=== PATIENT | male | born 1995 | race Caucasian/White ===

== ENCOUNTER 2018-04-24 06:41 | Emergency (ER) | payer OTHER ==
[2018-04-24 06:53] VITALS: BP 147/92; PULSE 80; TEMP 97.6; BMI 29.2
--- NOTE | 2018-04-24 07:10 | PDOC ---
History of Present Illness - General Chief Complaint: Back Pain Stated Complaint: BACK PAIN Time Seen by Provider: 04/24/18 07:09 History Source: Patient Exam Limitations: No Limitations - History of Present Illness Initial Comments: 04/24/18 07:35 23 year old male with no PMH presents to ED complaining of right sided back pain x6 days, worsening x1 day. He states his pain is located to his right back , radiating around to his right flank, constant, with no alleviating or aggravating factors. He denies fevers, chills, nausea, vomiting, diarrhea, abdominal pain, chest pain, shortness of breath, dysuria, hematuria, headache, weakness, numbness, tingling. Pt states the pain began when he was walking to the shower and felt his back "tighten up". PCP - pt does not remember his PCP's name Surgical history - none Allergies - NKDA Denies IV drug use, recreational drug use, ETOH use, nicotine use. Past History - Past Medical History Allergies/Adverse Reactions: Allergies Allergy/AdvReac Type Severity Reaction Status Date / Time No Known Allergies Allergy Verified 04/24/18 06:52 Home Medications: Ambulatory Orders Naproxen 500 mg PO BID 5 Days #10 tablet 04/24/18 - Suicide/Smoking/Psychosocial Hx Smoking History: Never smoked Have you smoked in the past 12 months: No Information on smoking cessation initiated: No Hx Alcohol Use: No Drug/Substance Use Hx: No Review of Systems - Review of Systems Able to Perform ROS?: Yes Comments:: 04/24/18 07:38 General: denies fever, chills, night sweats, generalized weakness. HEENT: denies sore throat, rhinorrhea, ear pain. Heart: denies chest pain, palpitations, syncope, lower extremity swelling. Respiratory: denies shortness of breath, cough, sputum production, hematemesis. Abdomen: denies abdominal pain, nausea, vomiting, diarrhea, constipation, blood in stool, bowel incontinence. : denies dysuria, urinary frequency, hematuria, urinary incontinence. Back: admits to back pain. Musculoskeletal: denies joint pain and joint swelling. Neurological: denies headache, dizziness, numbness, tingling. Skin: denies rash, laceration, abrasion. *Physical Exam - Vital Signs Last Vital Signs Temp Pulse Resp BP Pulse Ox 97.6 F 80 20 147/92 99 04/24/18 06:52 04/24/18 06:52 04/24/18 06:52 04/24/18 06:52 04/24/18 06:52 - Physical Exam Comments: 04/24/18 07:39 Appearance: sitting upright in bed. HEENT: head is normocephalic, atraumatic. EOMI. PERRLA. Neck: supple. Full ROM. Heart: regular rhythm. no murmurs, rubs or gallops. Lungs: clear to auscultation bilaterally. no crackles, rhonchi or wheezing. no stridor. Abdomen: soft, nontender. normal bowel sounds. no rebound, guarding, masses. Back: tenderness to palpation of right latissiumus dorsi, no midline tenderness of c-spine, t-spine or l-spine. straight leg test negative bilaterally. reproduction of pain with arm adducted, internally rotated and patient instructed to abduct and externally rotate against resistance. Extremities: Peripheral pulses intact and equal. No lower extremity edema. Neurological: Alert. Oriented x3. CN 2-12 intact. 5/5 strength all extremities. Full sensation all extremities and bilateral face. Medical Decision Making - Medical Decision Making 04/24/18 07:43 23 year old male with no PMH, denies IV drug use, denies diabetes, complaining of right sided back pain x6 days. No fever, chills, urinary or bowel incontinence, weakness, numbness, abdominal pain, dysuria. Pain is reproducible upon palpation of the latissimus dorsi muscle and activation of the latissimus dorsi muscle. Initial Vital Signs Temp Pulse Resp BP Pulse Ox 97.6 F 80 20 147/92 99 04/24/18 06:52 04/24/18 06:52 04/24/18 06:52 04/24/18 06:52 04/24/18 06:52 Afebrile. No tachycardia. No hypotension. Pending Toradol, UA. 04/24/18 09:35 UA negative, CXR negative. Pt will be discharged with prescription for Naproxen, instructions to follow up with his PCP and strict return precautions. *DC/Admit/Observation/Transfer Diagnosis at time of Disposition: Back pain - Discharge Dispostion Disposition: HOME Condition at time of disposition: Improved - Prescriptions Prescriptions: Naproxen 500 mg PO BID 5 Days #10 tablet - Referrals Referrals: Tristan Lau MD [Primary Care Provider] - - Patient Instructions Printed Discharge Instructions: DI for Low Back Pain, DI for Muscle Strain Additional Instructions: You were seen today for back pain. You were given intramuscular Toradol, which is an anti-inflammatory medication, it will last 4-6 hours. Your urine analysis was normal, you do not have a urinary tract infection. Your chest X-ray was normal. Please check the label of the medication you are taking from [facility] for pain. I have sent a prescription for Naproxen 500 mg twice a day to your pharmacy. Do not take both ibuprofen and naproxen at the same time. Stay hydrated, drink water. Rest the affected area, no upper body exercise for 1-2 weeks, or until the pain has subsided. No heavy lifting for 1-2 weeks, or until the pain has subsided. Please follow up with your primary care physician within 5 days, and bring the paperwork given to you today with you. Please return to the Emergency Department if you develop fever, nausea, vomiting , burning with urination, increasing pain, weakness or numbness, urinary or bowel incontinence. Please return to the Emergency Department for any new, worsening or concerning symptoms. - Post Discharge Activity Forms/Work/School Notes: Back to Work
[2018-04-24] MEDS ORDERED: KETOROLAC TROMETHAMINE 60 MG/2 ML VIAL IM ONE (07:32)
[2018-04-24] MEDS ORDERED: KETOROLAC TROMETHAMINE 60 MG/2 ML VIAL ONE (07:42)
[2018-04-24 08:27] LABS: URINE APPEARANCE CLEAR; URINE BILIRUBIN NEGATIVE (<2.0 mg/dL); URINE COLOR LTYELLOW; URINE GLUCOSE (UA) NEGATIVE (NEGATIVE); URINE KETONE NEGATIVE (NEGATIVE); URINE LEUK ESTERASE NEGATIVE (NEGATIVE); URINE NITRITE NEGATIVE (NEGATIVE); URINE PROTEIN NEGATIVE (NEGATIVE); URINE UROBILINOGEN NEGATIVE mg/dL (0.2-1.0)
--- NOTE | 2018-04-24 08:58 | PDOC ---
Attending Attestation - Resident Resident Name: Ana Shea - ED Attending Attestation I have performed the following: I have examined & evaluated the patient, The case was reviewed & discussed with the resident, I agree w/resident's findings & plan, Exceptions are as noted - Physicial Exam PE: 04/24/18 08:54 "GENERAL: Awake, alert, and fully oriented, in no acute distress. HEAD: No signs of trauma EYES: PERRLA, EOMI, sclera anicteric, conjunctiva clear ENT: Auricles normal inspection, hearing grossly normal, nares patent, oropharynx clear without exudates. Moist mucosa NECK: Nontender, no stepoffs, Normal ROM, supple, no lymphadenopathy, JVD, or masses LUNGS: Breath sounds equal, clear to auscultation bilaterally. No wheezes, and no crackles HEART: Regular rate and rhythm, normal S1 and S2, no murmurs, rubs or gallops ABDOMEN: Soft, nontender, normoactive bowel sounds. No guarding, no rebound. No masses EXTREMITIES: Normal range of motion, no edema. No clubbing or cyanosis. No cords, erythema, or tenderness NEUROLOGICAL: Cranial nerves II through XII intact. 5/5 strength and sensation in all extremities, Normal speech, normal gait, normal cerebellar function SKIN: Warm, Dry, normal turgor, no rashes or lesions noted. BACK: + R upper back tenderness, no bony deformity, no crepitus - Medical Decision Making 04/24/18 08:55 23 M with R upper back pain. Likely msk in etiology as pt reports recently doing deadlifts. Pt with no midline tenderness, no neuro deficits. PE unlikely as pt with PERC score 0. Pain not consistent with renal colic but will r/o with UA. - CXR to r/o PTX - UA to r/o kidney stone - Toradol 04/24/18 09:16 UA wnl CXR unremarkable Pt is well appearing, with normal vitals. Clinically stable for DC at this time. I discussed the physical exam findings, ancillary test results and final diagnoses with the patient. I answered all of the patient's questions. The patient was satisfied with the care received and felt comfortable with the discharge plan and treatment plan. The patient agrees to follow up with the primary care physician within 24-72 hours.
== END 2018-04-24 10:00 | disposition home or self-care (01) ==
LOC: JER 06:41
PROC: 3E0233Z Introduction of Anti-inflammatory into Muscle, Percutaneous Approach (ICD-10-PCS; principal; 2018-04-24)
DX: M54.89 Other dorsalgia (principal)
CPT/HCPCS: 71046-TC-FY; 81003; 96372; 99282-25